=== PATIENT | female | born 1990 | race Two or more races ===

== ENCOUNTER 2016-10-29 12:15 | Emergency (ER) | payer BC, MEDICAID ==
[~2016-10-29] VITALS: Ht 170.2 cm; Wt 94.3 kg
[2016-10-29 14:20] VITALS: BP 102/56
[2016-10-29] MEDS ORDERED: ACETAMINOPHEN 325 MG TAB PO ONE (14:30)
[2016-10-29] MEDS ORDERED: cefTRIAXone SOD 1,000 MG VL IM ONE (14:30)
== END 2016-10-29 15:10 | disposition home or self-care (01) ==
LOC: ER 12:18
DX: O23.41 Unspecified infection of urinary tract in pregnancy, first trimester (principal); Z3A.08 8 weeks gestation of pregnancy; J02.9 Acute pharyngitis, unspecified
CPT/HCPCS: 81002; 96372; 99283; J0696

== ENCOUNTER → 2016-12-15 | Outpatient (CLI) | payer BC, MEDICAID | END | disposition home or self-care (01) | LOC: US 09:32 | PROVIDERS: ATTEND Internal Medicine Cardiovascular Disease | DX: M79.89 Other specified soft tissue disorders (principal) | CPT/HCPCS: 93970 ==

== ENCOUNTER → 2016-12-16 | Outpatient (CLI) | payer BC, MEDICAID | END | disposition home or self-care (01) | LOC: XYW 09:25 | PROVIDERS: ATTEND Internal Medicine Cardiovascular Disease | DX: R07.89 Other chest pain (principal); Z86.711 Personal history of pulmonary embolism | CPT/HCPCS: 93306 ==